=== PATIENT | male | born 1990 | race Caucasian/White ===

== ENCOUNTER 2019-05-22 15:36 | Emergency (ER) | payer MEDICAID ==
[~2019-05-22] VITALS: Ht 188 cm; Wt 81.8 kg
[2019-05-22 15:45] VITALS: Ht 188 cm; Wt 81.8 kg
[2019-05-22] MEDS ORDERED: ESTRACE2 MG PO (15:48)
[2019-05-22] MEDS ORDERED: ALDACTONE100 MG PO (15:49)
[2019-05-22] MEDS ORDERED: BUTALB-APAP-CA1 EACH PO (20:07)
[2019-05-22 20:26] VITALS: BP 109/70
== END 2019-05-22 20:26 | disposition home or self-care (01) ==
LOC: D.ER 15:36
DX: R51 Headache (principal)